=== PATIENT | female | born 1950 | race Caucasian/White ===

== ENCOUNTER 2022-01-17 15:41 | Emergency (ER) | payer MEDICARE, OTHER ==
[~2022-01-17] VITALS: Ht 152.4 cm; Wt 75.7 kg
[2022-01-17] MEDS ORDERED: ONDANSETRON HCL INJ 2MG/ML 2ML 2 MG/ML VIAL IV STA (16:22)
[2022-01-17 16:32] LABS: BASOPHILS # (AUTO) 0.1 (0.0-0.1); BASOPHILS % 0.5 % (0.0-1.0); EOSINOPHILS # (AUTO) 0.2 (0.0-0.4); EOSINOPHILS % 2.2 % (0.0-6.0); HEMATOCRIT 40.1 % (34.2-44.1); HEMOGLOBIN 13.3 g/dL (12.0-16.0); LYMPHOCYTES # (AUTO) 2.8 (1.0-3.2); LYMPHOCYTES % 29.1 % (18.0-39.1); MEAN CORPUSCULAR HEMOGLOBIN 33.1 pg (28-32); MEAN CORPUSCULAR HGB CONC 33.2 g/dL (31-35); MEAN CORPUSCULAR VOLUME 99.8 fL (81-99); MONOCYTES # (AUTO) 0.7 (0.2-0.8); MONOCYTES % 7.7 % (4.4-11.3); NEUTROPHILS # (AUTO) 5.8 (2.1-6.9); NEUTROPHILS % 60.1 % (38.7-80.0); PLATELET COUNT 233 x10e3/uL (140-360); RED BLOOD COUNT 4.02 x10e6/uL (3.6-5.1); RED CELL DISTRIBUTION WIDTH 13.9 % (11.7-14.4)
[2022-01-17 16:56] LABS: ALBUMIN 3.9 g/dL (3.5-5.0); ANION GAP 22.2 mmol/L (8-16); CALCIUM 10.6 mg/dL (8.4-10.2); CREATININE, SERUM 2.83 mg/dL (0.57-1.11); POTASSIUM 4.2 mmol/L (3.5-5.1)
[2022-01-17] MEDS ORDERED: SODIUM CHLORIDE 0.9% 1000ML 1,000 ML IV ONE (17:45)
== END 2022-01-17 19:37 | disposition home or self-care (01) ==
LOC: ER 15:55
DX: R55 Syncope and collapse (principal); R20.0 Anesthesia of skin; Q61.3 Polycystic kidney, unspecified; G93.0 Cerebral cysts
CPT/HCPCS: 36415; 70450; 80053; 83880; 84484; 85025; 93005; 99284; J2405; J7030

== ENCOUNTER → 2022-11-06 | Outpatient (CLI) | payer MEDICARE | LOC: US 12:33 | PROVIDERS: ATTEND Internal Medicine Nephrology | DX: Q61.2 Polycystic kidney, adult type (principal) | CPT/HCPCS: 76770; 76857 ==